=== PATIENT | female | born 1960 ===

== ENCOUNTER 2017-09-01 07:23 | Emergency (ER) | payer BC ==
[2017-09-01 07:23] VITALS: BMI 30.4
[2017-09-01 07:27] VITALS: BP 126/64; PULSE 77; RESP 18; TEMP 98.3; O2SAT 97
--- NOTE | 2017-09-01 08:14 | ED PDOC ---
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 Saw PMD Casimiro and Rx mobic and flexeril but unhelpful for pain. Has ortho appt on Sep [address] Maria. Denies new falls, weakness, fever or swelling. No imaging of knees performed yet. Past Medical History Reviewed: Historical Data, Nursing Documentation, Vital Signs Vital Signs: Last Vital Signs Temp 98.3 F 09/01/17 07:26 Pulse 77 09/01/17 07:26 Resp 18 09/01/17 07:26 BP 126/64 09/01/17 07:26 Pulse Ox 97 09/01/17 07:26 - Medical History PMH: Asthma, Back Problems - Surgical History Surgical History: Cholecystectomy - Family History Family History: States: Unknown Family Hx - Immunization History Hx Tetanus Toxoid Vaccination: No Hx Influenza Vaccination: No Hx Pneumococcal Vaccination: No - Home Medications Home Medications: Ambulatory Orders Medication Instructions Recorded Naproxen [Naprosyn] 375 mg PO TIDPC #20 tab 04/29/14 Albuterol HFA [Ventolin HFA 90 2 puff IH [id number] PRN #60 puff 08/28/16 mcg/actuation (8 g)] Azithromycin [Zithromax] 250 mg PO DAILY 4 Days tab 08/28/16 predniSONE [predniSONE Tab] 40 mg PO DAILY 3 Days tab 08/28/16 Meclizine [Meclizine*] 25 mg PO Q6 PRN #20 tab 12/13/16 Ondansetron ODT [Zofran ODT] 4 mg PO Q8H PRN #20 odt 12/13/16 Naproxen [Naprosyn] 500 mg PO BID PRN #14 tablet 09/01/17 traMADol [Ultram] 50 mg PO TID PRN #12 tab 09/01/17 - Allergies Allergies/Adverse Reactions: Allergies Allergy/AdvReac Type Severity Reaction Status Date / Time No Known Allergies Allergy Verified 09/01/17 07:42 Review of Systems ROS Statement: Except As Marked, All Systems Reviewed And Found Negative Constitutional: Negative for: Fever, Chills Cardiovascular: Negative for: Chest Pain, Palpitations Respiratory: Negative for: Cough, Shortness of Breath Gastrointestinal: Negative for: Abdominal Pain Genitourinary Female: Negative for: Dysuria Musculoskeletal: Positive for: Arm Pain, Leg Pain. Negative for: Neck Pain, Back Pain, Hand Pain, Foot Pain Skin: Negative for: Rash, Lesions, Jaundice Neurological: Negative for: Weakness, Numbness, Headache, Dizziness Psych: Negative for: Depression Physical Exam - Reviewed Nursing Documentation Reviewed: Yes Vital Signs Reviewed: Yes - Physical Exam Appears: Positive for: Well, Non-toxic Head Exam: Positive for: ATRAUMATIC Skin: Positive for: Normal Color, Warm, Dry Cardiovascular/Chest: Negative for: Tachycardia Respiratory: Negative for: Respiratory Distress Gastrointestinal/Abdominal: Negative for: Tenderness Extremity: Positive for: Tenderness (R>L knee, bilateral knee crepitus w locking , mild effusion), Swelling (knees; L antecubital ecchymosis from phlebotomy ( last week PMD)). Negative for: Calf Tenderness - ECG O2 Sat by Pulse Oximetry: 97 Medical Decision Making Medical Decision Making: analgesia ordered XRays ordered Accession No. : [id number] Patient Name / ID : ISIS CARMEN / [id number] Exam Date : 09/01/2017 07:49:32 ( Approved ) Study Comment : Sex / Age : F / 57Y Creator : Gabriel Carr MD Dictator : Gabriel Carr MD Health Services Administrator : Tube Depatcher : Gabriel Carr MD Approver2 : Report Date : 09/01/2017 08:33:38 My Comment : PROCEDURE: Bilateral Knee Radiographs. HISTORY: b/l (R>L) knee pain COMPARISON: None. FINDINGS: BONES: Right Knee: Normal. No fracture. Left Knee: Normal. No fracture. JOINTS: Right Knee: Normal. No osteoarthritis. Left knee: Normal. No osteoarthritis. SOFT TISSUES: Right Knee: Normal. Left Knee: Normal. JOINT EFFUSION: Right Knee: None. Left Knee: None. OTHER FINDINGS: None. IMPRESSION: Normal radiographs of the knees. required additional analgesia w percocet x1 then felt better ELIAS wrap applied results of xrays discussed and need for followup explained Has ortho appt Nov [address] Maria Disposition - Clinical Impression Clinical Impression: Knee pain - Patient ED Disposition Is Patient to be Admitted: No Counseled Patient/Family Regarding: Studies Performed, Diagnosis, Need For Followup, Rx Given - Disposition Referrals: Melania Maria MD [Staff Provider] - Disposition: Routine/Home Disposition Time: 11:01 Condition: STABLE Additional Instructions: Followup with Dr Maria as already scheduled Take pain medication as directed. Return to ER for any worse or new symptoms. Prescriptions: Naproxen [Naprosyn] 500 mg PO BID PRN #14 tablet PRN Reason: Pain, Moderate (4-7) traMADol [Ultram] 50 mg PO TID PRN #12 tab PRN Reason: Pain, Moderate (4-7) Instructions: Swollen Knee Joint (ED), Knee Pain (ED), Arthralgia (ED), Swollen Joint (ED) Forms: [employer] (Sami) Print Language: CITIZEN OF [place]
--- NOTE | 2017-09-01 08:35 | RAD ---
PROCEDURE: Bilateral Knee Radiographs. HISTORY: b/l (R>L) knee pain COMPARISON: None. FINDINGS: BONES: Right Knee: Normal. No fracture. Left Knee: Normal. No fracture. JOINTS: Right Knee: Normal. No osteoarthritis. Left knee: Normal. No osteoarthritis. SOFT TISSUES: Right Knee: Normal. Left Knee: Normal. JOINT EFFUSION: Right Knee: None. Left Knee: None. OTHER FINDINGS: None. IMPRESSION: Normal radiographs of the knees.
[2017-09-01] MEDS ORDERED: Oxycodone/Acetaminophen 5/325 mg Tab PO STA (10:24)
[2017-09-01] MEDS ORDERED: Oxycodone/Acetaminophen 5/325 mg Tab ONE (10:32)
== END 2017-09-01 11:28 | disposition home or self-care (01) ==
LOC: H.ER 07:23
DX: M25.569 Pain in unspecified knee (principal); J45.909 Unspecified asthma, uncomplicated
CPT/HCPCS: 73562; 96372; 99284; J1885

== ENCOUNTER 2018-03-18 07:51 | Emergency (ER) | payer OTHER, MEDICAID ==
[2018-03-18 07:58] VITALS: BP 136/75; PULSE 74; RESP 18; TEMP 96.3; BMI 27.3
[2018-03-18 08:03] VITALS: O2SAT 98
--- NOTE | 2018-03-18 09:25 | ED PDOC ---
Lower Extremity Pain/Injury Time Seen by Provider: 03/18/18 08:02 Chief Complaint (Nursing): Lower Extremity Problem/Injury Chief Complaint (Provider): Lower Extremity Problem/Injury History Per: Patient Onset/Duration Of Symptoms: Days (x 30) Current Symptoms Are (Timing): Still Present Additional Complaint(s): 57 year old female, with no significant past medical history, presents to the ED complaining of right foot pain, onset one month ago. Patient reports she has not seen a doctor for pain. Patient states she has been taking meloxicam daily, which was earlier prescribed by PMD in [facility] for osteoarthritis pain. Patient reports meloxicam has not helped relieve foot pain. 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 Denies tripping, slipping, falling, swelling, bruising, and redness. Patient reports pain is at the top and bottom of her right foot. PMD: Past Medical History Vital Signs: Last Vital Signs Temp 96.3 F L 03/18/18 07:57 Pulse 74 03/18/18 07:57 Resp 18 03/18/18 07:57 BP 136/75 03/18/18 07:57 Pulse Ox 98 03/18/18 08:01 - Medical History PMH: Asthma, Back Problems - Surgical History Surgical History: Cholecystectomy - Family History Family History: States: Unknown Family Hx - Living Arrangements Living Arrangements: With Family - Immunization History Hx Tetanus Toxoid Vaccination: No Hx Influenza Vaccination: No Hx Pneumococcal Vaccination: No - Home Medications Home Medications: Ambulatory Orders Medication Instructions Recorded Naproxen [Naprosyn] 375 mg PO TIDPC #20 tab 04/29/14 Albuterol HFA [Ventolin HFA 90 2 puff IH [id number] PRN #60 puff 08/28/16 mcg/actuation (8 g)] Azithromycin [Zithromax] 250 mg PO DAILY 4 Days tab 08/28/16 predniSONE [predniSONE Tab] 40 mg PO DAILY 3 Days tab 08/28/16 Meclizine [Meclizine*] 25 mg PO Q6 PRN #20 tab 12/13/16 Ondansetron ODT [Zofran ODT] 4 mg PO Q8H PRN #20 odt 12/13/16 Naproxen [Naprosyn] 500 mg PO BID PRN #14 tablet 09/01/17 traMADol [Ultram] 50 mg PO TID PRN #12 tab 09/01/17 Acetaminophen [Tylenol Extra 1,000 mg PO Q8H #50 tablet 03/18/18 Strength] - Allergies Allergies/Adverse Reactions: Allergies Allergy/AdvReac Type Severity Reaction Status Date / Time No Known Allergies Allergy Verified 03/18/18 08:01 Review of Systems ROS Statement: Except As Marked, All Systems Reviewed And Found Negative Constitutional: Negative for: Fever, Chills Musculoskeletal: Positive for: Foot Pain Physical Exam - Reviewed Nursing Documentation Reviewed: Yes Vital Signs Reviewed: Yes - Physical Exam Appears: Positive for: Non-toxic, No Acute Distress Head Exam: Positive for: ATRAUMATIC, NORMOCEPHALIC Cardiovascular/Chest: Positive for: Regular Rate, Rhythm. Negative for: Murmur Respiratory: Positive for: Normal Breath Sounds. Negative for: Respiratory Distress Extremity: Positive for: Other (Pulses are 2+ in both dorsalis pedis, somme diffuse tenderness at dorsal of foot and plantar fasciitis). Negative for: Tenderness (no tenderness of the medial and lateral mallelous, no papable tenderness to base of fifth metatarsal. ), Swelling (No palpable swelling ) Neurologic/Psych: Positive for: Alert, Oriented. Negative for: Motor/Sensory Deficits - ECG O2 Sat by Pulse Oximetry: 98 (RA) Pulse Ox Interpretation: Normal Medical Decision Making Medical Decision Making: Time: 821 Impression: Foot Pain Rule out: fracture, plantar fasciitis, bone spurs, general osteoarthritis. Plan: -- Toradol 60 g IM -- Foot Right 3 Views X-Ray Time: -- X-Ray results -- Patient will be discharged for different onset and will be told to follow up with [facility]. Scribe Attestation: Documented by Seb Delaney, acting as a scribe for Dr. Alistair MD. Provider Scribe Attestation: All medical record entries made by the Scribe were at my direction and personally dictated by me. I have reviewed the chart and agree that the record accurately reflects my personal performance of the history, physical exam, medical decision making, and the department course for this patient. I have also personally directed, reviewed, and agree with the discharge instructions and disposition. Disposition - Clinical Impression Clinical Impression: Foot pain, right - Patient ED Disposition Is Patient to be Admitted: No Doctor Will See Patient In The: Office - Disposition Referrals: [facility] [Outside] [facility] [Outside] [facility] [Outside] Disposition: Routine/Home Disposition Time: 09:30 Condition: FAIR Prescriptions: Acetaminophen [Tylenol Extra Strength] 1,000 mg PO Q8H #50 tablet Instructions: Plantar Fasciitis Exercises, Foot Sprain (DC) Forms: [facility] (Iranian) Print Language: MOROCCAN - POA Present On Arrival: None
--- NOTE | 2018-03-18 10:31 | RAD ---
PROCEDURE: Right Foot Radiographs. HISTORY: pain for one month COMPARISON: None. FINDINGS: BONES: No acute fracture. JOINTS: First metatarsophalangeal joint degenerative changes. SOFT TISSUES: Normal. OTHER FINDINGS: Achilles enthesophyte. Inferior plantar calcaneal spur. IMPRESSION: No demonstrated fracture or dislocation.
== END 2018-03-18 09:45 | disposition home or self-care (01) ==
LOC: H.ER 07:51
DX: M79.671 Pain in right foot (principal); J45.909 Unspecified asthma, uncomplicated
CPT/HCPCS: 73630; 96372; 99284; J1885